=== PATIENT | female | born 1975 | race Caucasian/White ===

== ENCOUNTER 2020-08-25 18:36 | Emergency (ER) | payer OTHER, SELFPAY ==
[2020-08-25 18:49] VITALS: BP 128/90; PULSE 64; RESP 16; TEMP 36.6; O2SAT 98
--- NOTE | 2020-08-25 18:58 | ED.FEMALEGU ---
HPI - Female Genitourinary General Chief complaint: Urogenital-Female Stated complaint: abd pain Time Seen by Provider: 08/25/20 18:58 Source: patient Mode of arrival: ambulatory Limitations: no limitations History of Present Illness HPI Narrative: Marilin Esquivel is a 44 yo female with a PMH of hypothyroid, depression, migraines.who comes to [facility] with left flank pain that started 2 and half hours ago. She has bent over with pain states that she does not want to go to the emergency room. Plan is to perform a urinalysis for uti versus renal calculi Has had a cholecystectomy and appendectomy Related Data Home Medications Medication Instructions Recorded Confirmed levothyroxine 150 mcg PO DAILY 08/25/20 08/25/20 sertraline 100 mg PO DAILY 08/25/20 08/25/20 topiramate 100 mg PO DAILY 08/25/20 08/25/20 Allergies Allergy/AdvReac Type Severity Reaction Status Date / Time polycarbophil Allergy Mild Rash Verified 08/25/20 18:48 cephalexin Allergy Unknown Rash Verified 08/25/20 19:07 Cephalosporins Allergy Unknown Rash Verified 08/25/20 19:07 iodine Allergy Unknown Rash Verified 08/25/20 19:07 nonoxynol 9 Allergy Unknown FACIAL Verified 08/25/20 18:48 SWELLING sumatriptan Allergy Unknown Rash Verified 08/25/20 19:07 raw carrots, celery Allergy Unknown Unknown Uncoded 08/25/20 18:48 potatoes, apples, peaches SUMATRIPTAN SUCCINATE Allergy Unknown Rash Uncoded 08/25/20 19:07 Review of Systems Review of Systems: Narrative: CONSTITUTIONAL: Denies fever, chills, sweats. EYES: Denies visual changes, redness, discharge. ENT: Denies rhinorrhea, congestion, sore throat, otalgia. CARDIOVASCULAR: Denies chest pain, palpitations, edema. RESPIRATORY: Denies dyspnea, wheezing, cough GASTROINTESTINAL: Denies abdominal pain, nausea, vomiting, diarrhea. GENITOURINARY: Has dysuria, L sided pain low back to front, no gross hematuria, abnormal discharge pain rated 10/10 SKIN: Denies rash or itching. NEUROLOGIC: Denies numbness, or focal weakness. PSYCHIATRIC: Denies anxiety or depression. [facility] Past Medical History Medical History Depression Hypothyroid Family History Family History Mother Cerebrovascular accident Social History Social History Smoking status: Never smoker Alcohol intake: never Comments At time of signature, I agree with nursing past medical, surgical, social and family history. There is no relevant family history pertinent to the presenting complaint. Exam Narrative: Exam Narrative: GENERAL: This is a well-nourished, well-developed patient, in moderate doistress. 10/10 flank pain HEAD: normocephalic, atraumatic. EYES: PERRL. Sclera clear/white. Vision is grossly intact. EARS: External ears normal, Hearing grossly intact. NOSE: External nose normal without nasal discharge, nares without redness, no rhinorrhea. THROAT: Mucous membranes moist, NECK: Neck supple, non-tender CARDIOVASCULAR: Regular rate and rhythm without murmurs, gallops, or rubs. RESPIRATORY: Clear to auscultation. Breath sounds equal bilaterally. No wheezes, rales, or rhonchi. GASTROINTESTINAL: Abdomen soft, tender,L flank pain radiating to front SKIN: warm, intact with no suspicious lesions or rash, good texture and turgor. NEURO: awake, alert, and oriented to person, place and time. There were no obvious focal neurologic abnormalities. Steady gait EXTREMITIES: Normal range of motion. BACK: Nontender without deformity Course Course Emergency Course: Patient arrives with doubled over with 10/10 left flank pain; nausea Patient refused Zofran UA shows hematuria only Patient transferred to [place] for further work-up Vital Signs Vital signs: Vital Signs Temperature 97.8 F 08/25/20 18:49 Pulse Rate 64 08/25/20 18:49 Respiratory Rate 16 08/25/20 18
== END 2020-08-25 19:21 | disposition short-term general hospital (02) ==
PROVIDERS: Emergency Provider Nurse Practitioner; PCP Family Medicine Adolescent Medicine
DX: R31.29 Other microscopic hematuria (principal); F32.9 Major depressive disorder, single episode, unspecified; E03.9 Hypothyroidism, unspecified
CPT/HCPCS: 81003; 99212; G0463

== ENCOUNTER 2020-08-25 19:33 | Emergency (ER) | payer OTHER, SELFPAY ==
--- NOTE | ~2020-08-25 | CT_ITS ---
EXAMINATION: CT abdomen pelvis wo con DATE: 08/25/2020 20:38 INDICATION: Left flank pain. TECHNIQUE: Computed tomography (CT) of the abdomen and pelvis was performed without intravenous contr ast. Automated exposure control and iterative reconstruction technique were employed. The dose-length product was 173.34 mGy-cm. COMPARISON: 04/18/2014 FINDINGS: Lung bases are clear. Heart size is normal. No pericardial or pleural effusion. Cholecystectomy clips at the gallbladder fossa. Liver, spleen, pancreas and bilateral adrenal glands are normal. 4 mm macr oscopic fat attenuation left renal angiomyolipoma. Subtle 4 mm stone at the left ureterovesicular domingo ction with mild left hydroureteronephrosis. Right kidney is normal. Appendix is not visualized and th ere is a suture line along the tip of the cecum and few adjacent surgical clips likely reflecting raman nges of prior appendectomy. No bowel obstruction. The uterus is not identified and has likely been correa rgically resected. No free intraperitoneal gas or fluid. No pathologically enlarged abdominal or pelv ic lymphadenopathy. Mild lumbar dextroscoliosis with mild spondylosis. IMPRESSION: 1. Obstructing 4 mm stone at the left ureterovesicular junction with mild left hydroureteronephrosis. Reviewed, dictated and finalized at location A. [employer]CTION TROUBLESHOOTER
[2020-08-25 19:45] VITALS: BP 129/108; PULSE 73; RESP 20; TEMP 36.8; O2SAT 100
[2020-08-25] MEDS: FAMOTIDINE 20 MG/2 ML VIAL IV PUSH (19:59)
[2020-08-25] MEDS: SODIUM CHLORIDE 0.9% IV 1,000 ML 999 ML IV CONT ×2 (19:59→21:43)
[2020-08-25] MEDS: MORPHINE SULFATE (*CRX) 4 MG/ML INJ IV PUSH ×2 (19:59→21:43)
[2020-08-25] MEDS: ONDANSETRON INJ 4 MG/2 ML VIAL IV PUSH (19:59)
[2020-08-25 20:05] LABS: Basophils Absolute Auto 0.1 K/mm3 (0.0-0.1); Basophils Percent Auto 0.6 % (0.2-1.2); Eosinophils Absolute Auto 0.1 K/mm3 (0-0.3); Eosinophils Percent Auto 0.6 % (0-4.4); Hematocrit 46.3 % (37.0-47.0); Hemoglobin 15.4 g/dL (12.0-15.0); Immature Granulocyte Absolute 0.08 K/mm3 (0.00-0.031); Immature Granulocyte Percent A 0.5 % (0-0.5); Lymphocytes Absolute Auto 1.27 K/mm3 (0.9-3.2); Lymphocytes Percent Auto 8.2 % (18.3-44.2); Mean Corpuscular HGB Conc 33.3 g/dl (32-36); Mean Corpuscular Hemoglobin 31.6 pg (26-34); Mean Corpuscular Volume 94.9 fl (80-100); Mean Platelet Volume 9.9 fl (7.4-10.4); Monocytes Absolute Auto 0.7 K/mm3 (0.1-0.6); Monocytes Percent Auto 4.3 % (2.6-8.5); Neutrophils Absolute Auto 13.3 K/mm3 (1.3-6.7); Neutrophils Percent Auto 85.8 % (45.5-73.1); Platelet Count Result 229 k/mm3 (150-375); Red Blood Count 4.88 M/mm3 (4.2-5.4); Red Cell Distribution Width 12.9 % (11.5-14.5); White Blood Count 15.5 K/mm3 (4.5-10.0)
[2020-08-25 20:11] LABS: Add Urine Microscopic? YES; Appearance Urine Cloudy (Clear); Bacteria Urine Trace /hpf; Bilirubin Urine Negative (Negative); Blood Urine 2+ (Negative); Color Urine Yellow (Yellow); Glucose Urine UA Negative (Negative); Ketones Urine Negative (Negative); Leukocyte Esterase Ur Negative LEU/UL (Negative); Mucus Urine Rare /lpf; Nitrate Urine Negative (Negative); Protein Urine 1+ mg/dL (Negative); RBC Urine 21-50 /hpf (0-2); Specific Grav Ur 1.016 (1.001-1.035); Squamous Epithelial Cell Urine Many /hpf (Few); Urobilinogen Urine Negative mg/dL (<2.0); WBC Urine 0-3 /hpf
--- NOTE | 2020-08-25 20:12 | ED.GENADULT ---
HPI - General Adult General Chief complaint: Back Pain/Injury Stated complaint: flank pain Time Seen by Provider: 08/25/20 19:36 Source: patient and family Mode of arrival: ambulatory Limitations: no limitations History of Present Illness HPI narrative: Patient is a 44-year-old female who presents from urgent care for left-sided flank pain and nausea patient notes she was lying in bed today developed sharp stabbing pain which has been persistent was seen in urgent care referred to emergency department patient on arrival appears uncomfortable denies similar occurrence in the past notes that she had felt fine prior to this denies recent illness injury or trauma Related Data Home Medications Medication Instructions Recorded Confirmed levothyroxine 150 mcg PO DAILY 08/25/20 08/25/20 sertraline 100 mg PO DAILY 08/25/20 08/25/20 topiramate 100 mg PO DAILY 08/25/20 08/25/20 Allergies Allergy/AdvReac Type Severity Reaction Status Date / Time polycarbophil Allergy Mild Rash Verified 08/25/20 18:48 cephalexin Allergy Unknown Rash Verified 08/25/20 19:07 Cephalosporins Allergy Unknown Rash Verified 08/25/20 19:07 iodine Allergy Unknown Rash Verified 08/25/20 19:07 nonoxynol 9 Allergy Unknown FACIAL Verified 08/25/20 18:48 SWELLING sumatriptan Allergy Unknown Rash Verified 08/25/20 19:07 raw carrots, celery Allergy Unknown Unknown Uncoded 08/25/20 18:48 potatoes, apples, peaches SUMATRIPTAN SUCCINATE Allergy Unknown Rash Uncoded 08/25/20 19:07 Review of Systems Review of Systems: All systems reviewed & are unremarkable except as noted in HPI and below PMFSH Past Medical History Medical History Depression Hypothyroid Family History Family History Mother Cerebrovascular accident Social History Social History Smoking status: Never smoker Alcohol intake: never Exam Narrative: Exam Narrative: GENERAL: Well-appearing, well-nourished, uncomfortable and in no acute distress. HEAD: Normocephalic, atraumatic. EYES: PERRLA and EOMI. ENT: Nares clear, no rhinorrhea or epistaxis. Mucous membranes moist. CHEST: Clear to auscultation. No respiratory distress. No wheezes rales or rhonchi HEART: Regular rate and rhythm. No murmur heard. Normal peripheral pulses. ABDOMEN: Soft, nontender, nondistended EXTREMITIES: Normal range of motion. No edema. SKIN: Warm, dry, no rash. NEURO: No focal deficits. Alert and oriented x3. PSYCH: Normal mood and affect. Course Course Emergency Course: Patient is a 44-year-old female who presented with flank pain found to have 4 mm kidney stone near the ureteropelvic junction patient without other high risk changes in the blood work or imaging. Patient has been hydrated given pain medications will be attempted on outpatient therapies given reasons to return. Patient is afebrile nontoxic-appearing has had improvement in the emergency department vital signs ABCs intact and stable Vital Signs Vital signs: Vital Signs Temperature 98.3 F 08/25/20 19:45 Pulse Rate 73 08/25/20 19:45 Respiratory Rate 20 08/25/20 19:45 Blood Pressure 129/108 H 08/25/20 19:45 Pulse Oximetry 100 08/25/20 19:45 Temperature 98.3 F 08/25/20 19:45 Pulse Rate 60 08/25/20 20:30 Respiratory Rate 18 08/25/20 20:30 Blood Pressure 110/83 08/25/20 20:30 Pulse Oximetry 100 08/25/20 20:30 Medical Decision Making [facility] Narrative Medical decision making narrative: Patient in the room has been hydrated given pain medications will be sent home with medications for kidney stone felt appropriate for outpatient reevaluation provided with reasons to return afebrile nontoxic-appearing at this time Vital Signs Vital Signs: Vital Signs Temperature 98.3 F 08/25/20 19:45 Pulse Rate 73 08/25/20 19:45 Respiratory Rate 20 0
[2020-08-25 20:18] LABS: Alanine Aminotransferase 13 U/L (4-35); Albumin Level 4.6 g/dL (3.5-5.1); Alkaline Phosphatase 60 U/L (38-126); Anion Gap 6 mmol/L (8-16); Aspartate Amino Transferase 19 U/L (14-36); Bilirubin,Total 0.3 mg/dL (0.2-1.3); Blood Urea Nitrogen 16 mg/dL (7-17); Calcium 9.4 mg/dL (8.4-10.2); Carbon Dioxide 25 mmol/L (22-30); Chloride 109 mmol/L (98-107); Estimated CRCL calculation 52 ml/min; Estimated Glomerular Filt Rate 54; Glucose 133 mg/dL (65-105); Potassium 4.1 mmol/L (3.4-5.0); Sodium 140 mmol/L (137-145)
[2020-08-25 20:30] VITALS: BP 110/83; PULSE 60; RESP 18; O2SAT 100
[2020-08-25] MEDS: KETOROLAC 30 MG/ML VIAL (*BKC) IV PUSH (20:50)
[2020-08-25 21:00] VITALS: BP 100/58; PULSE 67; RESP 16; O2SAT 100
[2020-08-25 22:00] VITALS: BP 116/76; PULSE 80; RESP 16; O2SAT 100
[2020-08-25] MEDS: HYDROmorphone HCL INJ (*CRX) 1 MG/ML SYR IV PUSH (22:45)
[2020-08-25 22:50] VITALS: BP 115/82; PULSE 77; RESP 16; O2SAT 100
== END 2020-08-25 22:55 | disposition home or self-care (01) ==
PROVIDERS: Emergency Medicine Emergency Medical Services; Emergency Provider Emergency Medicine; PCP Family Medicine Adolescent Medicine
DX: N13.2 Hydronephrosis with renal and ureteral calculous obstruction (principal); F32.9 Major depressive disorder, single episode, unspecified; E03.9 Hypothyroidism, unspecified
CPT/HCPCS: 36415; 74176; 80053; 81001; 81003; 81025; 85025; 96361; 96374; 96375; 96376; 99284; J1170; J1885; J2270; J2405; J7030

== ENCOUNTER → 2020-08-28 14:15 | Outpatient (CLI) | payer OTHER, SELFPAY ==
[2020-08-28 21:18] LABS: SARS-CoV-2 RNA PCR Negative
== END ==
PROVIDERS: PCP Family Medicine Adolescent Medicine; Visit Provider Urology
DX: Z01.812 Encounter for preprocedural laboratory examination (principal); Z20.822 Contact with and (suspected) exposure to COVID-19
CPT/HCPCS: C9803; U0003; U0005

== ENCOUNTER 2020-08-30 01:00 | Day surgery (SDC) | payer OTHER, SELFPAY ==
--- NOTE | 2020-08-28 10:20 | P.HP_ITS ---
History of Present Illness History of Present Illness Consent: Risks, benefits, and alternatives have been discussed and questions answered. Patient agrees to proceed with procedure. Chief complaint: left kidney stone Narrative: Marilin Esquivel is a 44 year old female, without prior known history of urolithiasis, presented to the ER at [facility] on 08/27 with left flank pain. She had no fevers chills or hematuria. Imaging revealed a 4 millimeter left distal ureteral calculus. After a attempted medical expulsive therapy she now presents for ureteroscopy with stone extraction. She is aware of the risk of this procedure including, but not limited to, adverse cardiopulmonary events, injury to her ureter necessitating stent placement. Review of Systems Cardiovascular: Cardiovascular: Denies chest pain, Denies lightheadedness, Denies palpitations and Denies dyspnea Respiratory: Respiratory: Denies dyspnea Gastrointestinal: Gastrointestinal: Denies diarrhea, Denies nausea and Denies vomiting Genitourinary: Genitourinary: Denies hematuria and Denies dysuria Endocrine: Endocrine: Denies palpitations PMFSH Past Medical History Medical History Depression Hypothyroid Family History Family History Mother Cerebrovascular accident Social History Social History Smoking status: Never smoker Alcohol intake: never Meds Home Medications and Allergies Home Medications Medication Instructions Recorded Confirmed Type hydrocodone-acetaminophen 1 tablet PO Q6H PRN 3 Days #12 08/25/20 Rx tablet ketorolac 10 mg PO Q8H PRN #7 tablet 08/25/20 Rx levothyroxine 150 mcg PO DAILY 08/25/20 08/25/20 History ondansetron HCl [Zofran] 4 mg PO Q8H PRN #7 tablet 08/25/20 Rx sertraline 100 mg PO DAILY 08/25/20 08/25/20 History tamsulosin [Flomax] 0.4 mg PO DAILY #10 cap 08/25/20 Rx topiramate 100 mg PO DAILY 08/25/20 08/25/20 History Allergies Allergy/AdvReac Type Severity Reaction Status Date / Time polycarbophil Allergy Mild Rash Verified 08/25/20 18:48 cephalexin Allergy Unknown Rash Verified 08/25/20 19:07 Cephalosporins Allergy Unknown Rash Verified 08/25/20 19:07 iodine Allergy Unknown Rash Verified 08/25/20 19:07 nonoxynol 9 Allergy Unknown FACIAL Verified 08/25/20 18:48 SWELLING sumatriptan Allergy Unknown Rash Verified 08/25/20 19:07 raw carrots, celery Allergy Unknown Unknown Uncoded 08/25/20 18:48 potatoes, apples, peaches SUMATRIPTAN SUCCINATE Allergy Unknown Rash Uncoded 08/25/20 19:07 Exam Const: General: no acute distress Resp: Effort & Inspection: normal respiratory effort GI: Inspection: non-distended GI Palp: No abdominal tenderness and No Guarding due to palpation present (GI) Auscultation: normal bowel sounds Assessment and Plan Assessment and plan (1) Left ureteral stone: Code(s): N20.1 - Calculus of ureter Status: Acute Assessment and Plan: * Cystoscopy, left ureteroscopy with stone extraction
[2020-08-28 10:54] VITALS: BMI 19.9
[2020-08-30] VITALS (8 sets, daily range): BP systolic 105–125; BP diastolic 56–96; PULSE 48–98; RESP 12–18; TEMP 36.1–36.9; O2SAT 96–100
--- NOTE | ~2020-08-30 | XR_ITS ---
XR retrograde pyelogram LT DATE: 08/30/2020 15:04 INDICATION: Obstructing 4 mm left ureterovesical junction stone TECHNIQUE: 32.5 seconds fluoroscopy time 235.39 radcm2 COMPARISON: August 25, [address] abdomen pelvis FINDINGS: Retrograde pyelography reveals mild left hydroureteronephrosis. Status post cholecystectomy. IMPRESSION: Mild left hydroureteronephrosis Reviewed, dictated and finalized at Location A. Reviewed, dictated and finalized at location B. R MECHANIC
--- NOTE | 2020-08-30 06:08 | WPDHPUPDATE1 ---
History and Physical Update Update Date/Time: 08/30/20 06:08 History and Physical has been reviewed, including an updated exam of the patient. There are NO changes in the patient's condition. Risks, benefits, and alternatives have been discussed and questions answered. Patient agrees to proceed with procedure.
[2020-08-30] MEDS: LACTATED RINGERS 1,000 ML 30 ML IV CONT (13:04)
--- NOTE | 2020-08-30 13:41 | WPDANESEPPF ---
Anes - Initial Pre Proc Eval Procedure: Operation Date: 08/30/20 14:00 Proposed Procedures p Cystoscopy, Left Ureteroscopy, Left Retrograde Pyelogram, Left Stone Extraction, Possible Left Stent Placement, - Shmuel Sanches MD s Possible Holmium Laser Procedure - Shmuel Sanches MD Date/Time: 08/30/20 13:41 Surgeon: Shmuel Sanches MD Pre Op Diagnosis: left kidney stone Patient Data Age: 44 Gender: F Height: 5 ft 6.5 in Weight: 58.2 kg Last Vital Signs Temp 36.9 C 08/30/20 13:40 Pulse 48 L 08/30/20 13:40 Resp 16 08/30/20 13:40 BP 109/73 08/30/20 13:40 Pulse Ox 100 08/30/20 13:40 Allergies Allergy/AdvReac Type Severity Reaction Status Date / Time polycarbophil Allergy Mild Rash Verified 08/30/20 13:33 cephalexin Allergy Unknown Rash Verified 08/30/20 13:33 Cephalosporins Allergy Unknown Rash Verified 08/30/20 13:33 iodine Allergy Unknown Rash Verified 08/30/20 13:33 nonoxynol 9 Allergy Unknown FACIAL Verified 08/30/20 13:33 SWELLING sumatriptan Allergy Unknown Rash Verified 08/30/20 13:33 raw carrots, celery Allergy Unknown STOMACH Uncoded 08/28/20 11:15 potatoes, apples, peaches UPSET SUMATRIPTAN SUCCINATE Allergy Unknown Rash Uncoded 08/25/20 19:07 Home Medications Medication Instructions Recorded Confirmed Type hydrocodone-acetaminophen 1 tablet PO Q6H PRN 3 Days #12 08/25/20 08/30/20 Rx tablet ketorolac 10 mg PO Q8H PRN #7 tablet 08/25/20 08/30/20 Rx levothyroxine 150 mcg PO DAILY 08/25/20 08/30/20 History ondansetron HCl [Zofran] 4 mg PO Q8H PRN #7 tablet 08/25/20 08/30/20 Rx sertraline 100 mg PO HS 08/25/20 08/30/20 History tamsulosin [Flomax] 0.4 mg PO DAILY #10 cap 08/25/20 08/30/20 Rx topiramate 100 mg PO DAILY 08/25/20 08/30/20 History Patient hx anesthesia problems: none Family hx anesthesia problems: none PMFSH Past Medical History Medical History Depression GERD (gastroesophageal reflux disease) Hypothyroid Surgical History Surgical History History of appendectomy History of cholecystectomy History of hysterectomy History of thyroidectomy Family History Family History Mother Cerebrovascular accident Social History Social History Smoking status: Current some day smoker Tobacco type: cigarettes Second hand tobacco smoke exposure: Yes Additional smoking assessment comments: STATES SOCIAL SMOKER 1PK/2 WEEKS/10+YRS Alcohol intake: current Drinks per week: 2 Substance use: never Substance use type: does not use Living arrangements: with family Additional living arrangements comments: LIVES WITH [facility] care concerns: No Anes - Eval Final PreProcedure Day of Procedure 08/30/20 13:41 Patient weight: normal Heart: regular rate and rhythm Lungs: clear to auscultation Airway: Mallampati scale class II Neurological: alert and oriented Last oral intake: >/= 8 hours ASA classification: II Emergent: no Anesthetic plan: proceed Anesthesia type and monitoring: general LMA and standard monitoring Informed Consent: The patient's anesthetic plan and its attendant risks and benefits were discussed with the patient/family/POA. Questions were solicited and answers provided to the satisfaction of the patient/family/POA.
[2020-08-30] MEDS: fentaNYL CITRATE INJ (*CRX) 100 MCG/2 ML VIAL 50 MCG IV PUSH (14:03)
[2020-08-30] MEDS: levoFLOXacin 500 MG/D5W 100 ML 500 MG/100 ML BAG 100 MG IVPB (14:31)
--- NOTE | 2020-08-30 15:09 | P.OP_ITS ---
Procedure Note - Detailed Date of procedure: 08/30/20 Pre-op diagnosis: left kidney stone Post-op diagnosis: same Procedure performed: Cystoscopy, left ureteroscopy, left retrograde pyelography Description of procedure: Patient is brought to the operative suite where she was prepped and draped in routine sterile fashion while in a dorsal lithotomy position after the uneventful induction of a general LMA anesthetic. Cystoscopy is undertaken with a 19 F rigid cystoscope. Bladder neck and urethra endoscopically normal. There is notable hyperemia and edema around the left ureteral orifice with an otherwise normal bladder. The mucosa without hyperemia other than as described above. There is no intravesical foreign body or neoplasm. A 0.035 in glidewire was advanced in the left renal pelvis. Distal ureteroscopy was undertaken with a short tapered semi-rigid ureteroscope. There are no identifiable ureteral stones (or other pathology ). I did perform ureteral re-endoscopy with a 7.5 F flexible ureteral scope throughout the co llecting system after injecting retrograde contrast to outline all calices. There are no identifiable stones in the collecting system or more proximal ureter. Scopes and wires were removed and she was taken recovery room good condition. Anesthesia: GLMA Surgeon: Shmuel Sanches MD Estimated blood loss (mL): 0 Drains: No Packing: No Pathology: none sent Complications: No immediate complications Condition: stable Disposition: PACU
[2020-08-30] MEDS: fentaNYL CITRATE INJ (*CRX) 100 MCG/2 ML VIAL 25 MCG IV PUSH (15:25)
== END 2020-08-30 16:42 | disposition home or self-care (01) ==
PROVIDERS: PCP Family Medicine Adolescent Medicine; Visit Provider Urology
PROC: (CPT 52352; principal; 2020-08-30 14:00)
DX: N20.1 Calculus of ureter (principal); E03.9 Hypothyroidism, unspecified; K21.9 Gastro-esophageal reflux disease without esophagitis; F32.9 Major depressive disorder, single episode, unspecified; F17.210 Nicotine dependence, cigarettes, uncomplicated
CPT/HCPCS: 52005; 74420; C1769; C9803; J1100; J1956; J2250; J2405; J2704; J3010; J7120; Q9966; U0003; U0005

== ENCOUNTER → 2021-08-27 09:11 | Outpatient (CLI) | payer OTHER, SELFPAY ==
--- NOTE | ~2021-08-27 | MMUS_ITS ---
EXAMINATION: MM diagnostic simi BI w deanna, US breast BI complete HISTORY: Palpable right breast abnormality. Bilateral breast asymmetries. TECHNIQUE: Additional 3-D tomosynthesis images of the breasts were performed and synthetic 2-D images were generated. CAD analysis was submitted and interpreted. High resolution complete bilateral breas t ultrasound was performed. COMPARISON: 01/07/2018 BREAST PARENCHYMAL COMPOSITION: The breasts are extremely dense, which lowers the sensitivity of mamm ography FINDINGS: MAMMOGRAPHIC FINDINGS: There are no suspicious masses, calcifications or architectural distortion in either breast to sugges t malignancy. ULTRASOUND: Complete bilateral US of all 4 quadrants of the breasts and retroareolar region was reviewed. Right breast: At 11:00, 2 cm from the nipple there is a oval hypoechoic mass with circumscribed mendoza ns, thin internal septation, parallel orientation, no posterior features, consistent with either a be nign intramammary lymph node or complicated cyst. No suspicious masses in the area of palpable concer n. Left breast ultrasound: Normal heterogeneous echotexture without focal solid or cystic mass. IMPRESSION: 1. No evidence for malignancy in either breast. 2. Routine yearly screening mammogram and regular clinical breast examination are recommended. BI-RADS Category 2: Benign finding(s). Reviewed, dictated and finalized at location A. [employer]ING MACHINE TENDER HELPER IMPRESSION: 1. No evidence for malignancy in either breast. 2. Routine yearly screening mammogram and regular clinical breast examination a re recommended. BI-RADS Category 2: Benign finding(s).
== END ==
PROVIDERS: Visit Provider Nurse Practitioner
DX: N63.11 Unspecified lump in the right breast, upper outer quadrant (principal)
CPT/HCPCS: 76641; 77062; 77066; G0279

== ENCOUNTER 2022-04-10 13:48 | Outpatient (CLI) | payer OTHER, SELFPAY ==
--- NOTE | ~2022-04-10 | US_ITS ---
EXAMINATION: US pelvic complete w TV DATE: 04/10/2022 15:04 INDICATION: Pelvic pain Comparison:No prior studies for comparison. TECHNIQUE: Multiple transabdominal and endovaginal sonographic images of the pelvis performed. FINDINGS: The uterus is surgically absent. The right ovary measures 4.4 x 2.4 x 3.8 cm and the left ovary measures 2.8 x 2.7 x 2.2 centimeters. There are small follicles in each ovary. There is a right ovarian cyst measuring 4.3 cm. There is a left ovarian cyst measuring 1.7 cm. Normal doppler signal in both ovaries. There is no free fluid in the pelvis. There are no abnormal masses seen on either side. IMPRESSION: 1. Bilateral ovarian cysts, largest in the right ovary measuring 4.3 cm. Reviewed, dictated and finalized at location B.
== END 2022-04-10 13:49 | disposition home or self-care (01) ==
PROVIDERS: PCP Family Medicine Adolescent Medicine; Visit Provider Nurse Practitioner
DX: R10.2 Pelvic and perineal pain (principal); N83.202 Unspecified ovarian cyst, left side; N83.201 Unspecified ovarian cyst, right side
CPT/HCPCS: 76830; 76856

== ENCOUNTER 2022-04-15 13:56 | Outpatient (CLI) | payer OTHER, SELFPAY ==
[2022-04-15 14:19] LABS: Hematocrit 49.2 % (37.0-47.0); Hemoglobin 16.3 g/dL (12.0-15.0); Mean Corpuscular HGB Conc 33.1 g/dl (32-36); Mean Corpuscular Hemoglobin 33.3 pg (26-34); Mean Corpuscular Volume 100.6 fl (80-100); Mean Platelet Volume 8.9 fl (7.4-10.4); Platelet Count Result 246 k/mm3 (150-375); Red Blood Count 4.89 M/mm3 (4.2-5.4); Red Cell Distribution Width 12.7 % (11.5-14.5); White Blood Count 10.9 K/mm3 (4.5-10.0)
[2022-04-15 14:28] LABS: Bacteria Urine Trace /hpf; Squamous Epithelial Cell Urine Many /hpf (Few); WBC Urine 0-3 /hpf
[2022-04-15 14:30] LABS: Alanine Aminotransferase 16 U/L (6-35); Albumin Level 4.9 g/dL (3.5-5.1); Alkaline Phosphatase 52 U/L (38-126); Anion Gap 9 mmol/L (8-16); Aspartate Amino Transferase 21 U/L (14-36); Bilirubin,Total 0.5 mg/dL (0.2-1.3); Blood Urea Nitrogen 17 mg/dL (7-17); CRP < 0.5 mg/dL (<1.0); Calcium 8.7 mg/dL (8.4-10.2); Carbon Dioxide 23 mmol/L (22-30); Chloride 108 mmol/L (98-107); Estimated Glomerular Filt Rate 60; Glucose 83 mg/dL (65-110); Potassium 4.3 mmol/L (3.4-5.0); Sodium 140 mmol/L (137-145)
[2022-04-15 14:33] LABS: Appearance Urine Clear (Clear); Bilirubin Urine Negative (Negative); Blood Urine Trace-intact (Negative); Color Urine Yellow (Yellow); Glucose Urine UA Negative (Negative); Ketones Urine Negative (Negative); Leukocyte Esterase Ur Negative LEU/UL (Negative); Nitrate Urine Negative (Negative); Protein Urine Negative (Negative); Urobilinogen Urine 0.2 mg/dL (<2.0)
[2022-04-15 14:35] LABS: Add Urine Microscopic? YES
[2022-04-15 14:58] LABS: Erythrocyte Sedimentation Rate 1 mm/hr (0-20)
== END 2022-04-15 13:57 | disposition home or self-care (01) ==
LOC: ANHLAB 14:00
PROVIDERS: PCP Family Medicine Adolescent Medicine; Visit Provider Nurse Practitioner
DX: R10.32 Left lower quadrant pain (principal)
CPT/HCPCS: 36415; 80053; 81001; 85027; 85652; 86140

== ENCOUNTER 2022-04-24 07:26 | Outpatient (CLI) | payer OTHER, SELFPAY ==
--- NOTE | ~2022-04-24 | CT_ITS ---
EXAMINATION: CT abdomen pelvis w con INDICATION: Left lower quadrant pain, hematuria TECHNIQUE: Computed tomographic images of the abdomen and pelvis were obtained after the administrati on of 100 cc of Omnipaque 350 intravenous contrast. The dose-length product (DLP) was 264.63 mGy-cm. Automated exposure control and iterative reconstruction technique were employed. COMPARISON: 08/25/2020 FINDINGS: Minimal dependent atelectasis is present in the lung bases. The heart size is normal. The g allbladder is surgically absent. Cysts of the liver measure up to 7 mm in the left hepatic lobe. The spleen, pancreas, and adrenal glands are normal. Cysts of the kidneys measure up to 8 mm on the right . No pathologically enlarged abdominal or pelvic lymph nodes are identified. There is no free intrape ritoneal gas or evidence of bowel obstruction. There is mild lumbar spondylosis. IMPRESSION: 1. No CT correlate for the patient's symptoms. Reviewed, dictated and finalized at location F.
== END 2022-04-24 07:27 | disposition home or self-care (01) ==
PROVIDERS: PCP Family Medicine Adolescent Medicine; Visit Provider Nurse Practitioner
DX: R10.32 Left lower quadrant pain (principal)
CPT/HCPCS: 74177; Q9967

== ENCOUNTER 2022-06-09 06:55 | Day surgery (SDC) | payer OTHER, SELFPAY ==
[2022-05-26 11:32] VITALS: BMI 21.9
[2022-06-09 07:38] VITALS: BP 124/76; PULSE 84; RESP 16; TEMP 37.1; O2SAT 98
[2022-06-09] MEDS: LACTATED RINGERS 1,000 ML 150 ML IV CONT (07:50)
--- NOTE | 2022-06-09 08:08 | WPDANESEPPF ---
Anes - Initial Pre Proc Eval Procedure: Operation Date: 06/09/22 09:15 Proposed Procedures p Diagnostic Colonoscopy - Ricardo Owen MD Date/Time: 06/09/22 08:08 Surgeon: Ricardo Owen MD Pre Op Diagnosis: Left Lower Quadrant Pain Patient Data Age: 46 Gender: F Height: 1.7 m Weight: 65.7 kg Last Vital Signs Temp 37.1 C 06/09/22 07:38 Pulse 84 06/09/22 07:38 Resp 16 06/09/22 07:38 BP 124/76 06/09/22 07:38 Pulse Ox 98 06/09/22 07:38 O2 Del Method Room Air 06/09/22 07:38 Allergies Allergy/AdvReac Type Severity Reaction Status Date / Time polycarbophil Allergy Mild Rash Verified 06/09/22 07:43 cephalexin Allergy Unknown Rash Verified 06/09/22 07:43 Cephalosporins Allergy Unknown Rash Verified 06/09/22 07:43 iodine Allergy Unknown Rash Verified 06/09/22 07:43 nonoxynol 9 Allergy Unknown FACIAL Verified 06/09/22 07:43 SWELLING sumatriptan Allergy Unknown Rash Verified 06/09/22 07:43 raw carrots, celery Allergy Unknown STOMACH Uncoded 06/09/22 07:43 potatoes, apples, peaches UPSET Home Medications Medication Instructions Recorded Confirmed Type topiramate 100 mg tablet 100 mg PO DAILY #90 tabs 10/21/21 06/09/22 Rx sodium,potassium,mag sulfates 17.5 See Rx Instructions PO .COMPLEX 04/28/22 06/09/22 Rx gram-3.13 gram-1.6 gram oral soln #354 mL (Suprep Bowel Prep Kit) sertraline 100 mg tablet See Rx Instructions .Route 05/06/22 06/09/22 Rx .COMPLEX #90 tabs levothyroxine 175 mcg tablet 175 mcg PO DAILY 05/19/22 06/09/22 History Patient hx anesthesia problems: none Family hx anesthesia problems: none Results Review: All pre-operative results and documents have been reviewed as part of the pre-operative evaluation. [facility] Past Medical History Medical History Bilateral ovarian cysts Depression GERD (gastroesophageal reflux disease) Hypothyroid Left lower quadrant abdominal pain Left ureteral stone (08/2020) Surgical History Surgical History History of appendectomy History of cholecystectomy (2013) History of hysterectomy (2014) History of thyroidectomy (2018) Family History Family History Mother Cerebrovascular accident Social History Social History Smoking status: Current some day smoker Tobacco type: cigarettes Second hand tobacco smoke exposure: Yes Additional smoking assessment comments: STATES SOCIAL SMOKER 1PK/2 WEEKS/10+YRS Alcohol intake: current Drinks per week: 2 Substance use: never Substance use type: does not use Living arrangements: with family Additional living arrangements comments: LIVES WITH [facility] care concerns: No Anes - Eval Final PreProcedure Day of Procedure 06/09/22 08:08 Patient weight: normal Heart: regular rate and rhythm Lungs: clear to auscultation Airway: Mallampati scale class II Neurological: alert and oriented Last oral intake: >/= 8 hours ASA classification: II Emergent: no Anesthetic plan: proceed Anesthesia type and monitoring: general GIVS and standard monitoring Results Review: All pre-operative results and documents have been reviewed as part of the pre-operative evaluation. Informed Consent: The patient's anesthetic plan and its attendant risks and benefits were discussed with the patient/family/POA. Questions were solicited and answers provided to the satisfaction of the patient/family/POA.
--- NOTE | 2022-06-09 08:14 | PM.HPGS ---
History of Present Illness History of Present Illness Consent: Risks, benefits, and alternatives have been discussed and questions answered. Patient agrees to proceed with procedure. Chief complaint: Left Lower Quadrant Pain Narrative: Marilin Esquivel is a 46 year old female Presents for colonoscopy. Patient reports left lower quadrant pain that began 3 months ago and has gradually improved on its own. She recent CT scan unremarkable. Patient has not taken antibiotics. There is concern over diverticulitis. Patient's past history is significant for weight loss of uncertain etiology. She has a distant history of a thyroid cancer. Patient reports her recent bowel habits have normalized. She denies any blood in her stools. Family history is noncontributory patient presents today for screening colonoscopy. Review of Systems Review of Systems: Review of systems noncontributory. [facility] Past Medical History Medical History Bilateral ovarian cysts Depression GERD (gastroesophageal reflux disease) Hypothyroid Left lower quadrant abdominal pain Left ureteral stone (08/2020) Surgical History Surgical History History of appendectomy History of cholecystectomy (2012) History of hysterectomy (2014) History of thyroidectomy (2018) Family History Family History Mother Cerebrovascular accident Social History Social History Smoking status: Current some day smoker Tobacco type: cigarettes Second hand tobacco smoke exposure: Yes Additional smoking assessment comments: STATES SOCIAL SMOKER 1PK/2 WEEKS/10+YRS Alcohol intake: current Drinks per week: 2 Substance use: never Substance use type: does not use Living arrangements: with family Additional living arrangements comments: LIVES WITH [facility] concerns: No Meds Home Medications and Allergies Home Medications Medication Instructions Recorded Confirmed Type topiramate 100 mg tablet 100 mg PO DAILY #90 tabs 10/21/21 06/09/22 Rx sodium,potassium,mag sulfates 17.5 See Rx Instructions PO .COMPLEX 04/28/22 06/09/22 Rx gram-3.13 gram-1.6 gram oral soln #354 mL (Suprep Bowel Prep Kit) sertraline 100 mg tablet See Rx Instructions .Route 05/06/22 06/09/22 Rx .COMPLEX #90 tabs levothyroxine 175 mcg tablet 175 mcg PO DAILY 05/19/22 06/09/22 History Allergies Allergy/AdvReac Type Severity Reaction Status Date / Time polycarbophil Allergy Mild Rash Verified 06/09/22 07:43 cephalexin Allergy Unknown Rash Verified 06/09/22 07:43 Cephalosporins Allergy Unknown Rash Verified 06/09/22 07:43 iodine Allergy Unknown Rash Verified 06/09/22 07:43 nonoxynol 9 Allergy Unknown FACIAL Verified 06/09/22 07:43 SWELLING sumatriptan Allergy Unknown Rash Verified 06/09/22 07:43 raw carrots, celery Allergy Unknown STOMACH Uncoded 06/09/22 07:43 potatoes, apples, peaches UPSET Vital Signs Vital Signs - 24 hr 06/09/22 07:38 Temperature 98.8 F Pulse Rate 84 Respiratory Rate 16 Blood Pressure 124/76 Pulse Oximetry 98 Oxygen Delivery Room Air Exam Narrative: Physical exam reveals patient to be alert. Vital signs stable. HEENT exam is unremarkable. Patient is anicteric. Lungs are clear to auscultation and percussion. Heart is without murmur or extra sounds. Abdomen bowel sounds present soft nontender with no organomegaly. Digital external rectal exam is normal. Assessment and Plan Assessment and plan (1) Left lower quadrant abdominal pain: Code(s): R10.32 - Left lower quadrant pain Status: Acute Assessment and Plan: Left lower quadrant abdominal pain of uncertain etiology. This may be related to diverticular disease recommend high-fiber diet. Colonoscopy will be performed. Further r
[2022-06-09 09:09] VITALS: BP 108/76; PULSE 73; RESP 16; O2SAT 100
--- NOTE | 2022-06-09 09:17 | WPDANESPN ---
Anes - Prog Note Post-Op Date/Time: 06/09/22 09:17 Cardiovascular status: normal Respiratory status: normal Airway patency: baseline Mental status: baseline Post-Op hydration status: normal Vital Signs: Last Vital Signs Temp 37.1 C 06/09/22 07:38 Pulse 84 06/09/22 07:38 Resp 16 06/09/22 07:38 BP 124/76 06/09/22 07:38 Pulse Ox 98 06/09/22 07:38 O2 Del Method Room Air 06/09/22 07:38 Pain Score (VAS): 0/10 Patient Feedback: Patient satisfied with anesthetic care.
[2022-06-09 09:19] VITALS: BP 112/55; PULSE 63; RESP 20; O2SAT 100
[2022-06-09 09:29] VITALS: BP 108/79; PULSE 68; RESP 20; O2SAT 100
== END 2022-06-09 09:45 | disposition home or self-care (01) ==
PROVIDERS: PCP Family Medicine Adolescent Medicine; Visit Provider Internal Medicine Gastroenterology
PROC: 0DJD8ZZ Inspection of Lower Intestinal Tract, Via Natural or Artificial Opening Endoscopic (ICD-10-PCS; CPT 45378; principal; 2022-06-09 09:15)
DX: R10.32 Left lower quadrant pain (principal)
CPT/HCPCS: 45378

== ENCOUNTER 2023-09-02 08:25 | Emergency (ER) | payer OTHER, SELFPAY ==
--- NOTE | ~2023-09-02 | XR_ITS ---
EXAMINATION: XR chest 2V DATE: 09/02/2023 09:05 INDICATION: Cough TECHNIQUE: Frontal and lateral views of the chest are obtained COMPARISON: 05/04/2014 FINDINGS: The lungs are free of acute opacities. No pleural effusion or pneumothorax. The cardiomedia stinal silhouette is normal. There is mild thoracic spondylosis. Surgical clips are noted in the neck near the expected location of the thyroid. IMPRESSION: 1. No acute cardiopulmonary abnormality. Reviewed, dictated and finalized at location B. [employer]
--- NOTE | 2023-09-02 08:36 | ED.GENADULT ---
HPI - General Adult General Chief complaint: Upper Respiratory Infection Stated complaint: Cough/SOB Source: patient, RN notes reviewed and old records reviewed Mode of arrival: ambulatory Limitations: no limitations History of Present Illness HPI narrative: 47-year-old female presents to [facility] with complaints of cough, shortness of breath, wheezing this started Thursday. Patient states may have ran a fever last night but is unsure. Patient denies sinus congestion. Patient denies dizziness, weakness, vomiting. Related Data Home Medications Medication Instructions Recorded Confirmed levothyroxine 175 mcg tablet 175 mcg PO DAILY 05/19/22 09/02/23 liothyronine 5 mcg tablet 5 mcg PO DAILY 09/02/23 09/02/23 Allergies Allergy/AdvReac Type Severity Reaction Status Date / Time polycarbophil Allergy Mild Rash Verified 09/02/23 08:38 cephalexin Allergy Unknown Rash Verified 09/02/23 08:38 Cephalosporins Allergy Unknown Rash Verified 09/02/23 08:38 iodine Allergy Unknown Rash Verified 09/02/23 08:38 nonoxynol 9 Allergy Unknown FACIAL Verified 09/02/23 08:38 SWELLING sumatriptan Allergy Unknown Rash Verified 09/02/23 08:38 raw carrots, celery Allergy Unknown STOMACH Uncoded 09/02/23 08:38 potatoes, apples, peaches UPSET Review of Systems Constitutional: Constitutional: Reports no additional constitutional complaints, Denies body ache(s), Denies chills, Denies fatigue, Reports fever(s) and Denies headache(s) Eyes: Eyes: Reports no additional eye complaints and Denies blurry vision ENT: Reports system reviewed and no additional complaints, except as documented, Denies vertigo, Denies dizziness, Denies ear discharge, Denies otalgia, Denies facial pain, Denies headache(s), Denies nasal congestion, Denies nasal discharge, Denies sinus pain, Denies sinus pressure and Denies sore throat Cardiovascular: Cardiovascular: Reports no additional cardiovascular complaints, Denies chest pain, Denies chest pain at rest, Denies rapid heart rate and Denies dyspnea Respiratory: Respiratory: Reports no additional respiratory complaints, Reports chest congestion, Reports cough, Denies pain on inspiration, Denies pain with cough, Reports dyspnea and Reports wheezing Gastrointestinal: Gastrointestinal: Denies abdominal pain, Denies diarrhea, Denies nausea and Denies vomiting Integumentary/Breasts: Skin/Breast: Denies rash Neurologic: Reports system reviewed and no additional complaints, except as documented, Denies vertigo, Denies dizziness and Denies headache(s) Endocrine: Endocrine: Denies fatigue PMFSH Past Medical History Medical History Bilateral ovarian cysts Depression GERD (gastroesophageal reflux disease) Hypothyroid Left lower quadrant abdominal pain Left ureteral stone (08/2020) Surgical History Surgical History History of appendectomy History of cholecystectomy (2013) History of hysterectomy (2014) History of thyroidectomy (2019) Family History Family History Mother Cerebrovascular accident Social History Social History Smoking status: Current some day smoker Tobacco type: cigarettes Second hand tobacco smoke exposure: Yes Additional smoking assessment comments: STATES SOCIAL SMOKER 1PK/2 WEEKS/10+YRS Alcohol intake: current Drinks per week: 2 Substance use: never Substance use type: does not use Lack of Transportation: No Lack of Food: Never True Current Housing: I Have Housing Concerned About Future Housing: No Difficulty Paying Gas/Electric Bills: No Difficulty Paying for Meds: No Currently Unemployed: No Education: Bachelor's Degree Difficulty w/ Childcare or Family Care: No Living arrangements: with family Additional living arrangements comments:
[2023-09-02 08:37] VITALS: BP 132/83; PULSE 90; RESP 20; TEMP 36.8; O2SAT 100
== END 2023-09-02 09:25 | disposition home or self-care (01) ==
PROVIDERS: Emergency Provider Registered Nurse; PCP Family Medicine Adolescent Medicine
DX: B34.9 Viral infection, unspecified (principal); J45.909 Unspecified asthma, uncomplicated; Z20.822 Contact with and (suspected) exposure to COVID-19; F17.210 Nicotine dependence, cigarettes, uncomplicated; K21.9 Gastro-esophageal reflux disease without esophagitis; E89.0 Postprocedural hypothyroidism; F32.A Depression, unspecified
CPT/HCPCS: 71046; 87426; 87804; 99213; G0463